=== PATIENT | female | born 1965 | race Caucasian/White ===

== ENCOUNTER 2016-03-07 05:59 | Day surgery (SDC) | payer OTHER ==
[~2016-03-07] VITALS: Ht 162.6 cm; Wt 68.5 kg
[~2016-03-07 05:59] MED LIST: vitamin d2
[2016-03-07] MEDS ORDERED: Ondansetron 2 mg/mL 2 mL Inj ONE (06:00)
[2016-03-07] MEDS ORDERED: Dexamethasone 4 mg/mL Inj ONE (06:00)
[2016-03-07] MEDS ORDERED: CeFAZolin 2 Gm/50 mL D5W IV Premix IV ONE (06:00)
[2016-03-07] MEDS ORDERED: Propofol 10,000 mCg/mL 20 mL Inj ONE (06:00)
[2016-03-07] MEDS ORDERED: fentaNYL-PF 50 mCg/mL 2 mL Inj ONE (06:00)
[2016-03-07] MEDS ORDERED: Ketamine 10 mg/mL 20 mL Inj ONE (06:00)
[2016-03-07] MEDS: Lactated Ringer's 1,000 ML IV SCH ×2 (06:50→07:31)
[2016-03-07 06:51] VITALS: BP 118/78; PULSE 65; RESP 16; O2SAT 98
[2016-03-07] MEDS ORDERED: Lactated Ringer's 500 ML IV PRN (07:21)
[2016-03-07] MEDS ORDERED: Lactated Ringer's 1,000 ML IV SCH (07:21)
--- NOTE | 2016-03-07 07:21 | PCM.HPANE ---
Patient Data Surgeon Admitting Provider: Attending Provider:Timi Rodriguez MD Primary Care Physician:Kaylie Mota Other Provider:Barb Wlels Anesthesia Reason for Visit Bilateral Mucouc Cyst Of Index Finger Ht/WT & BMI Height (Feet): 5 Height (Inches): 4 Weight (Kilograms): 68.5 Body Mass Index 25.00 Allergies Coded Allergies: No Known Allergies (Unverified , 03/05/16) Past Anesthesia History Anesthesia History: Denies:: Abnormal Airway, Difficult Intubation Diabetes History Hx Diabetes?: No Medications Hypertension Medication: No Home Meds Incl Beta Angela: No Reported Medications [vitamin d2] No Conflict CheckUnknown Dose WEEKLY 03/05/16 History History of ENT Problems?: No HEENT History: Denies:: Abnormal Airway Difficult Intubation Hx of Heart Problems?: No Hx of Respiratory Problem?: No Respiratory History: Denies:: Oxygen Administration Use of C-PAP Machine Hx Neurologic Problems?: No Hx of GI Problems?: No Hx of Problems?: No Hx Musculoskeletal Problems?: Yes Musculoskeletal History: Positive for:: Musculoskeletal Trauma (bilateral index finger mucous cysts current admission problem) Hx Surgeries?: No (unknown) Hx Any Other Health Problems?: No Other History: Denies:: Cancer Hx Diabetes: No Hx Alcohol Use: NoHx Substance Use: NoHave You Smoked inLast 12 mo: No Stop/Bang Treated for Sleep Apnea?: No Do You Have a CPAP Machine?: No S-Snoring: Do You Snore Loudly: No T-Tired: feel tired, fatigued: No O-Obsered: Observed not breath: No P-Blood Pressure: treated: No B- Body Mass Index > 35 kg/m2: No A- Age over 50: Yes N- Neck Large Circumference: No G- Gender Male: No LUCIE Total Score: 1 LUCIE Risk Assessment: Low Risk, <3 Yes Risk Assessment Category Category 1A: Patient has history of documented sleep apnea, and HAS NOT received any narcotic, sedative or anesthesia administration during this stay. Category 1B: Patient has history of documented sleep apnea, and HAS received any narcotic , sedative or anesthesia administration during this stay Category 2: Patient has SUSPECTED Obstructive Sleep Apnea, and HAS received any narcotic , sedative or anesthesia administration during this stay. Category 3: Patient has SUSPECTED Obstructive Sleep Apnea and HAS NOT received narcotic, sedative or anesthesia administration during this stay. Category 4: Outpatient in Procedural Areas with known sleep apnea or who screen positive for High Risk via the STOP/BANG questionnaire. Exam Exam Vital Signs Vital Signs Date Time Temp Pulse Resp B/P Pulse Ox O2 Delivery O2 Flow Rate FiO2 03/07/16 06:51 36.1 65 16 118/78 98 Room Air General Appearance: Alert, Oriented X3, Cooperative, No Acute Distress HEENT/AIRWAY: MP 2 Lungs: Clear to Auscultation, Normal Air Movement Heart: Exam Unremarkable, Regular Rate/Rhythm, No Murmurs/Rubs/Gallops Meds/Labs/Diagnostics Admission Meds Current Medications Lactated Ringer's (Lr) 1,000 ml @ 120 mls/hr Q8H20M IV Last administered on t 06:50; Start 03/07/16 at 05:00; Stop 03/07/16 at 13:19 Plan Impression Patient chart reviewed, patient interviewed and anesthestic plan with risks, benefits, and alternatives discussed, and informed consent obtained. NPO Status: 0300 WATER ASA Physical Status: ASA1 Normal Healthy Anesthetic Plan: MAC Bene/Risks/Altern/Consents: Yes HP Complete Prior to Induction: Yes Hernandez Wilson MD Mar 07, 2016 07:21
[2016-03-07] MEDS ORDERED: EPHEDrine Sulfate 50 mg/mL Inj IVPUSH PRN (07:25)
[2016-03-07] MEDS ORDERED: MetoCLOpramide 5 mg/mL 2 mL Inj IVPUSH PRN (07:25)
[2016-03-07] MEDS ORDERED: HYDROmorphone 1 mg/mL Inj IVPUSH PRN (07:25)
[2016-03-07] MEDS ORDERED: Dexamethasone 4 mg/mL Inj IVPUSH PRN (07:25)
[2016-03-07] MEDS ORDERED: Phenylephrine 10,000 mCg/mL Inj IVPUSH PRN (07:25)
[2016-03-07] MEDS ORDERED: Ondansetron 2 mg/mL 2 mL Inj IVPUSH PRN (07:25)
[2016-03-07] MEDS ORDERED: fentaNYL-PF 50 mCg/mL 2 mL Inj IVPUSH PRN (07:25)
[2016-03-07] MEDS ORDERED: Bupivacaine-MPF 0.5% 30 mL Inj INFILTRATE ONE (07:57)
[2016-03-07] MEDS ORDERED: Bupivacaine-MPF 0.25% 30 mL Inj INFILTRATE ONE (07:58)
[2016-03-07] MEDS ORDERED: HYDROcodone-APAP 5-325 mg Tablet PO PRN (08:40)
[2016-03-07 08:42] VITALS: BP 120/79; PULSE 63; RESP 15; O2SAT 99
--- NOTE | 2016-03-07 09:08 | PCM.ANEP2 ---
Post Anesthesia Evaluation ASA/CMS Post Anesthesia VS in Patient's Normal Range?: Yes Resp Stable; Airway Patent?: Yes CV Function & Hydration Stable: Yes Mental Status Recovered?: Yes Pain control Satisfactory?: Yes N/V Control Satisfactory?: Yes Hernandez Wilson MD Mar 07, 2016 09:08
--- NOTE | 2016-03-07 09:08 | PCM.ANEP1 ---
Post Anesthesia Phase 1 PACU Phase 1 Assessment Vital Signs Vital Signs Date Time Temp Pulse Resp B/P Pulse Ox O2 Delivery O2 Flow Rate FiO2 03/07/16 08:42 36.3 63 15 120/79 99 Room Air 03/07/16 06:51 36.1 65 16 118/78 98 Room Air Anesthetic Administered: GA Level of Alertness: Awake, talking WOODWARD's with Equal Strength: Yes Pain: No Nausea or Vomiting: No Oxygen Delivery: Simple Mask Lungs: Clear to Auscultation, Normal Air Movement Dermatome Level: Full Sensation Hernandez Wilson MD Mar 07, 2016 09:08
[2016-03-07 09:35] VITALS: BP 129/81; PULSE 72; RESP 16; O2SAT 100
--- NOTE | 2016-03-08 11:37 | PATH ---
SURGICAL PATHOLOGY Attending Physician:Timi Rodriguez CASE STATUS: Signed Out PATIENT NAME: BARTOLO QUINTANA PID: [id number] : 1965 DATE COLLECTED:03/07/2016 16:58 SPECIMEN: 1: Skin, Cyst 2: Skin, Cyst CLINICAL HISTORY: A: RIGHT INDEX MUCOUS CYST B: LEFT INDEX MUCOUS CYST FINAL DIAGNOSIS: 1.RIGHT INDEX MUCOUS CYST: BENIGN MUCOUS CYST. 2.LEFT INDEX MUCOUS CYST. BENIGN MUCOUS CYST. ICD10 CODE M71.30 GROSS DESCRIPTION: The specimen is received in two formalin filled container labeled with the patient's name. 1). The specimen is labeled "right index mucous cyst" and consists of a 0.3 x 0.3 x 0.3 CM portion of tissue which is entirely submitted in cassette 1A. 2). The specimen is labeled "left index mucous cyst" and consists of a 0.3 x 0.3 x 0.2 CM light olvera portion of tissue which is entirely submitted in cassette 2A. 03/07/2016 DAC MICRO DESCRIPTION: See diagnosis. ICD-9 CODES: CPT CODES: 1: 37690 2: 22096 Electronically Signed Out Terry Lamb MD [facility] [address], [place] [address] Technical component performed at [facility], [facility] [address], [place], [address]
--- NOTE | 2016-03-11 18:54 | OP ---
[address] [address] OPERATIVE REPORT PATIENT: BARTOLO QUINTANA : 1965 MR#: [id number] ADMIT: 03/07/2016 JOB ID: [id number] DATE OF SURGERY: 03/07/2016 SURGEON: Timi Rodriguez MD. PREOPERATIVE DIAGNOSIS(ES): 1. Right index finger mucous cyst. 2. Left index finger mucous cyst. POSTOPERATIVE DIAGNOSIS(ES): 1. Right index finger mucous cyst. 2. Left index finger mucous cyst. PROCEDURE: 1. Excision of right index finger mucous cyst. 2. Right index finger distal interphalangeal joint capsulotomy with debridement of interphalangeal joint. 3. Excision of left index finger mucous cyst. 4. Left index finger distal interphalangeal joint capsulotomy with debridement of interphalangeal joint. TANK WAGON DRIVER: None. ANESTHESIA: MAC with local. ESTIMATED BLOOD LOSS: Minimal. COMPLICATIONS: None. INDICATIONS FOR PROCEDURE: This is a 50-year-old female patient with slowly enlarging masses on bilateral index fingers just distal to the DIP joint. I suspected mucous cysts. At this point, excisions are indicated. PROCEDURE AND FINDINGS: The patient was identified in the preoperative area. The surgical sites were marked. Patient was taken back to the operating room and placed supine on the operating table. Appropriate time-outs were taken. MAC was induced smoothly. Patient was then prepped and draped in the usual sterile manner. Local anesthesia was infiltrated to bilateral index finger around the neurovascular bundle consisting of lidocaine and Marcaine. Dorsal ring blocks were also carried out bilaterally. I then turned my attention to the right index finger. The index finger was then exsanguinated and a small finger tourniquet placed at the base of the finger. It was noted that patient has a small prominence on the radial aspect of the right index finger just distal to the DIP joint. A chevron incision was then designed with one limb directly over the mass and the 2nd limb over the DIP joint axially. Incision was made with a #15 blade and deepened down to the underlying subcutaneous tissue. I then elevated the skin flap off of the mass which appears to be a ganglion cyst. The cyst is just on top of the dorsal radial capsule of the DIP joint. I then deepened the incision over the joint down to the underlying extensor apparatus. I then elevated the intervening tissue between the skin and the extensor apparatus off of the joint capsule which included the cyst. This was then passed off to Pathology as a specimen. I then made a capsulotomy on the radial aspect of the extensor apparatus down into the DIP joint. A small cuff of the dorsal capsule was removed. This exposed the joint. There were some small areas of irregularity but no glaring bone spurs or osteoarthritis. Joint was smoothed with a rongeur. Tourniquet was released and hemostasis was obtained with bipolar electrocautery. The incision was then reapproximated with several 5-0 Prolene horizontal mattress sutures. I then turned my attention to the left index finger. Again the finger was exsanguinated and a small tourniquet placed at the base of the index finger. It was noted that patient has an area of prominence on the ulnar aspect of the index finger just distal to the DIP joint. Again, axial incision was then made directly over the DIP joint with an oblique extension over the mass. I then elevated the skin flap elevated off of the mass with blunt and sharp dissection with a pair of iris scissors. It was noted again the patient has a small mucous cyst arising from the dorsal ulnar capsule of the DIP joint. I then deepened the axial portion of the incision down to the underlying extensor apparatus. This allowed me to dissect the soft tissue and the mucous cyst off of the dorsal capsule. This was passed off to Pathology as a specimen. A longitudinal incision was then made along the ulnar border of the extensor apparatus through the dorsal capsule down to the DIP joint. A triangular cuff of the dorsal ulnar capsule was removed. Again, the joint was actually quite smooth with just small areas of irregularity which were smoothed with a rongeur. Tourniquet was released and hemostasis was obtained with electrocautery. The incision was then reapproximated with several 5-0 Prolene horizontal mattress sutures. The patient tolerated the procedure well. Needle count, sponge count, instrument counts were correct at the end of the procedure. Patient was transported to recovery in stable condition.
== END 2016-03-07 23:59 | disposition home or self-care (01) ==
LOC: SAS 05:59
PROVIDERS: ATTEND Plastic Surgery
DX: L72.9 Follicular cyst of the skin and subcutaneous tissue, unspecified (principal)
CPT/HCPCS: 26160; 88305; J0690; J1100; J2250; J2405; J7120